=== PATIENT | male | born 1980 | race Two or more races ===

== ENCOUNTER 2018-10-10 16:03 | Emergency (ER) | payer MEDICARE ==
[~2018-10-10] VITALS: Ht 182.9 cm; Wt 90.7 kg
--- NOTE | 2018-10-10 16:20 | NUR ---
BIBA RA 39 from [facility] [place] "Multiple c/o abdominal/chest pain. Increasing Anxiety, pacing a lot. Needs medical evaluation". PT STATES ABDOMINAL PAIN IS LLQ AND 8/10. GOES AWAY WHEN WALKING AROUND. PT IS AOX4, AMB, VSS, RR EVEN AND UNLABORED ON RA. SKIN INTACT, NO ACUTE DISTRESS NOTED. MADE COMFORTABLE IN BED. READY FOR EVAL.
[2018-10-10] MEDS ORDERED: KETOROLAC TROMETHAMINE INJ 30 MG/ML VIAL IV ONE (16:30)
[2018-10-10] MEDS ORDERED: IV NS 0.9% 1,000 ML BAG IV ONE (16:30)
[2018-10-10] MEDS ORDERED: ONDANSETRON HCL/PF 4 MG/2 ML VIAL IVP ONE (16:30)
[2018-10-10] MEDS ORDERED: KETOROLAC TROMETHAMINE INJ 30 MG/ML VIAL ONE (16:32)
[2018-10-10] MEDS ORDERED: ONDANSETRON HCL/PF 4 MG/2 ML VIAL ONE (16:32)
[2018-10-10 16:47] LABS: BASOPHILS # (AUTO) 0.1 /CMM (0.0-0.2); EOSINOPHILS % (AUTO) 9.3 % (0.0-6.0); HEMATOCRIT 43 % (39-51); LYMPHOCYTES # (AUTO) 2.3 /CMM (0.8-4.8); LYMPHOCYTES % (AUTO) 24.2 % (20.0-44.0); MEAN CORPUSCULAR HGB CONC 35 g/dl (31.0-36.0); MEAN CORPUSCULAR VOLUME 89 fL (80-96); MONOCYTES # (AUTO) 1.3 /CMM (0.1-1.30); NEUTROPHILS # (AUTO) 5.1 /CMM (1.8-8.9); NEUTROPHILS % (AUTO) 52.5 % (43.0-81.0); PLATELET COUNT (AUTO) 233 /CMM (150-450); RED BLOOD CELL COUNT(AUTO) 4.83 MIL/uL (4.5-6.0); WHITE BLOOD COUNT (AUTO) 9.6 K/uL (4.3-11.0)
[2018-10-10 17:02] LABS: APPEARANCE,URINE Clear (CLEAR); BILIRUBIN,URINE Negative (NEGATIVE); BLOOD, URINE Negative Ery/uL (NEGATIVE); COLOR,URINE Yellow (YELLOW); KETONES,URINE Negative (NEGATIVE); LEUKOCYTE ESTERASE ,URINE Negative (NEGATIVE); NITRITE, URINE Negative (NEGATIVE); PH,URINE 6.5 (5.0-8.0); PROTEIN,URINE Negative (NEGATIVE); UGLUCOSE Negative (NEGATIVE); UROBILINOGEN,URINE 0.2 EU/dL (0.2)
[2018-10-10 17:04] LABS: CALCIUM, SERUM 8.8 mg/dL (8.5-10.1); CARBON DIOXIDE 25 mmol/L (21-32); CHLORIDE 104 mmol/L (98-107); CREATININE 0.9 mg/dL (0.6-1.3); GLUCOSE 127 mg/dL (74-106); POTASSIUM 3.9 mmol/L (3.5-5.1); SODIUM SERUM 139 mmol/L (136-145); UREA NITROGEN, BLOOD 8 mg/dL (7-18)
[2018-10-10 17:08] LABS: ALANINE AMINOTRANSFERASE 185 U/L (12-78); ALBUMIN 3.8 g/dL (3.4-5.0); ALKALINE PHOSPHATASE 82 U/L (46-116); ASPARTATE AMINOTRANSFERASE 102 U/L (15-37); BILIRUBIN,DIRECT 0.1 mg/dL (0.0-0.2); BILIRUBIN,TOTAL 0.7 mg/dL (0.2-1.0); LIPASE 274 U/L (73-393); TOTAL PROTEIN, SERUM 7.5 g/dL (6.4-8.2)
--- NOTE | 2018-10-10 17:10 | NUR ---
PT TAKEN TO RADIOLOGY VIA TIAN[facility]
--- NOTE | 2018-10-10 18:34 | NUR ---
PER CHARGE NURSE, PT HAS BEEN DISCHARGED FROM [facility] AND IS OK TO BE DISCHARGED TO HOME FROM ER.
--- NOTE | 2018-10-10 18:57 | NUR ---
PT RESTING COMFORTABLY IN BED. NO COMPLAINTS AT THIS TIME. VSS. WILL CONT TO MONITOR.
--- NOTE | 2018-10-10 19:34 | NUR ---
NEW EKG AND TROP REDRAWN. AWAITING RESULTS
--- NOTE | 2018-10-10 20:12 | NUR ---
IV removed. Catheter intact and site benign. Pressure and 4x4 applied to site. No bleeding noted. Patient discharged to home in stable condition. Written and verbal after care instructions given. Patient verbalizes understanding of instruction.
[2018-10-10 20:13] VITALS: BP 142/89
== END 2018-10-10 20:05 | disposition home or self-care (01) ==
LOC: ER 16:08
DX: K59.00 Constipation, unspecified (principal); I73.9 Peripheral vascular disease, unspecified; K76.0 Fatty (change of) liver, not elsewhere classified; E66.9 Obesity, unspecified; F29 Unspecified psychosis not due to a substance or known physiological condition; R07.89 Other chest pain; F12.90 Cannabis use, unspecified, uncomplicated; R74.0 Nonspecific elevation of levels of transaminase and lactic acid dehydrogenase [LDH]; F31.9 Bipolar disorder, unspecified; F41.9 Anxiety disorder, unspecified; R00.0 Tachycardia, unspecified
CPT/HCPCS: 36415; 71045; 74176; 80048; 80076; 81001; 83690; 84484 ×2; 85025; 93005 ×2; 96374; 96375; 99284; J1885; J2405; J7030; 81000-TC

== ENCOUNTER 2018-10-12 02:01 | Emergency (ER) | payer MEDICARE ==
[~2018-10-12] VITALS: Ht 193 cm; Wt 122.0 kg
--- NOTE | 2018-10-12 02:08 | NUR ---
PT AN[employer] FOR SI AT [employer] AND STATED, "I WANT TO RUN INTO TRAFFIC". NO ACUTE DISTRESS. NO EVIDENCE OF DISCOMFORT. [facility] X 2. SAFETY PRECAUTION NOTED. AWAITING FOR MD ORDERS.
[2018-10-12 02:42] LABS: BASOPHILS # (AUTO) 0.1 /CMM (0.0-0.2); BASOPHILS % (AUTO) 0.8 % (0.0-2.0); EOSINOPHILS % (AUTO) 3.3 % (0.0-6.0); HEMATOCRIT 43 % (39-51); HEMOGLOBIN 15.1 g/dL (13.5-17.5); LYMPHOCYTES # (AUTO) 2.1 /CMM (0.8-4.8); LYMPHOCYTES % (AUTO) 20.8 % (20.0-44.0); MEAN CORPUSCULAR HGB CONC 35 g/dl (31.0-36.0); MEAN CORPUSCULAR VOLUME 90 fL (80-96); MONOCYTES # (AUTO) 1.1 /CMM (0.1-1.30); MONOCYTES % (AUTO) 11.3 % (2.0-12.0); NEUTROPHILS # (AUTO) 6.5 /CMM (1.8-8.9); NEUTROPHILS % (AUTO) 63.8 % (43.0-81.0); PLATELET COUNT (AUTO) 226 /CMM (150-450); RED BLOOD CELL COUNT(AUTO) 4.83 MIL/uL (4.5-6.0); WHITE BLOOD COUNT (AUTO) 10.2 K/uL (4.3-11.0)
[2018-10-12 02:57] LABS: CALCIUM, SERUM 9.3 mg/dL (8.5-10.1); CARBON DIOXIDE 25 mmol/L (21-32); CHLORIDE 102 mmol/L (98-107); CREATININE 0.9 mg/dL (0.6-1.3); GLUCOSE 106 mg/dL (74-106); POTASSIUM 3.6 mmol/L (3.5-5.1); SODIUM SERUM 140 mmol/L (136-145); UREA NITROGEN, BLOOD 12 mg/dL (7-18)
--- NOTE | 2018-10-12 03:00 | NUR ---
PT EYES CLOSED, ABLE TO OPEN EYES WT TACTILE STIMULI. WT NO ACUTE DISTRESS. NO SUICIDAL IDEATION NOTED AT THIS TIME. FREQUENT VISUAL CHECKS DONE. WILL CONTINUE TO MONITOR.
[2018-10-12 03:01] LABS: APPEARANCE,URINE Clear (CLEAR); BILIRUBIN,URINE SMALL (NEGATIVE); BLOOD, URINE Negative Ery/uL (NEGATIVE); COLOR,URINE Dark (YELLOW); KETONES,URINE 40 (NEGATIVE); LEUKOCYTE ESTERASE ,URINE Negative (NEGATIVE); NITRITE, URINE Negative (NEGATIVE); PH,URINE 5.5 (5.0-8.0); PROTEIN,URINE 30 mg/dl (NEGATIVE); UGLUCOSE Negative (NEGATIVE); UROBILINOGEN,URINE 0.2 EU/dL (0.2)
[2018-10-12 03:07] LABS: ALANINE AMINOTRANSFERASE 187 U/L (12-78); ALCOHOL, BLOOD < 3 mg/dL (0-0); ALKALINE PHOSPHATASE 74 U/L (46-116); ASPARTATE AMINOTRANSFERASE 99 U/L (15-37); BILIRUBIN,DIRECT 0.3 mg/dL (0.0-0.2); BILIRUBIN,TOTAL 1.3 mg/dL (0.2-1.0); TOTAL PROTEIN, SERUM 7.8 g/dL (6.4-8.2)
[2018-10-12 03:13] LABS: ACETAMINOPHEN 0 ug/ml (10-30)
[2018-10-12] MEDS ORDERED: IV NS 0.9% 1,000 ML BAG IV ONE (03:30)
[2018-10-12 03:35] LABS: BACTERIA,URINE None seen /HPF (None Seen); RBC,URINE 0-2 /HPF (0-2); SQUAMOUS EPITHELIAL CELL,UR Few /HPF (None Seen); WBC,URINE 0-2 /HPF (0-3)
[2018-10-12 03:36] LABS: MUCUS,URINE Moderate /LPF (None Seen)
--- NOTE | 2018-10-12 04:00 | NUR ---
PT. ASLEEP ON GURNEY. NO ACUTE DISTRESS, NO EVIDENCE OF DISCOMFORT. WILL CONTINUE TO MONITOR.
--- NOTE | 2018-10-12 06:50 | NUR ---
PT MORE AWAKE AT THIS TIME, ORIENTED X 2 AND RESTLESS. TRIES TO GET OUT OF BED AND WALK AROUND HALLWAY. ASSISTED BACK TO ROOM AND GURNEY. SAFETY PRECAUTION NOTED AT ALL TIMES. WILL ENDORSE TO DAY SHIFT FOR CONTINUITY OF CARE.
--- NOTE | 2018-10-12 07:30 | NUR ---
PATIENT AWAKE, ALERT AND ORIENTED X 2-3, NO ACUTE DISTRESS. NO PAIN OR DISCOMFORT. WALKING AROUND HALLWAY. ASSISTED BACK TO ROOM.
--- NOTE | 2018-10-12 09:22 | NUR ---
pt ambulatory with steady gait
--- NOTE | 2018-10-12 13:00 | NUR ---
PATIENT RESTING COMFORTABLE INSIDE ROOM. A&O X 3, NO ACUTE DISTRESS. AMBULATING WITH GOOD GAIT. NO C/O PAIN OR DISCOMFORT. LUNCH PROVIDED
--- NOTE | 2018-10-12 14:30 | NUR ---
PATIENT VERIFIED HOMELESS STATUS. RESOURCES PROVIDED. TAP CARD GIVEN PATIENT REQUESTED
[2018-10-12 15:06] VITALS: BP 146/80
--- NOTE | 2018-10-12 15:25 | NUR ---
Patient discharged to home in stable condition. Written and verbal after care instructions given. Patient verbalizes understanding of instruction.
== END 2018-10-12 15:32 | disposition home or self-care (01) ==
LOC: ER 02:03
DX: R41.82 Altered mental status, unspecified (principal); F31.9 Bipolar disorder, unspecified; F17.200 Nicotine dependence, unspecified, uncomplicated; R00.0 Tachycardia, unspecified; Z60.2 Problems related to living alone
CPT/HCPCS: 36415; 80048; 80076; 80305; 80307; 81001; 85025; 96360; 99283; G0480; J7030; 81000-TC

== ENCOUNTER 2019-03-14 20:37 | Emergency (ER) | payer MEDICARE, MEDICAID ==
[~2019-03-14] VITALS: Ht 193 cm; Wt 122.9 kg
--- NOTE | 2019-03-14 20:45 | NUR ---
CATHY, PATIENT WAS RECENTLY RELEASED FROM IN FROM [facility]. PATIENT EXPRESSING SI. PATIENT STATE, "I JUST DONT KNOW HOW TO LIVE. I WANT TO KILL MYSELF." STATES THEY RELEASED HIM ON RIPSERIDONE BUT IT IS JUST NOT HELPING.
[2019-03-14 21:09] LABS: BASOPHILS # (AUTO) 0.1 /CMM (0.0-0.2); BASOPHILS % (AUTO) 0.8 % (0.0-2.0); EOSINOPHILS % (AUTO) 3.5 % (0.0-6.0); HEMATOCRIT 45 % (39-51); HEMOGLOBIN 15.7 g/dL (13.5-17.5); LYMPHOCYTES # (AUTO) 3.1 /CMM (0.8-4.8); LYMPHOCYTES % (AUTO) 33.1 % (20.0-44.0); MEAN CORPUSCULAR HGB CONC 35 g/dl (31.0-36.0); MEAN CORPUSCULAR VOLUME 91 fL (80-96); MONOCYTES # (AUTO) 1.2 /CMM (0.1-1.30); MONOCYTES % (AUTO) 12.3 % (2.0-12.0); NEUTROPHILS # (AUTO) 4.7 /CMM (1.8-8.9); NEUTROPHILS % (AUTO) 50.3 % (43.0-81.0); PLATELET COUNT (AUTO) 182 /CMM (150-450); RED BLOOD CELL COUNT(AUTO) 4.98 MIL/uL (4.5-6.0); WHITE BLOOD COUNT (AUTO) 9.4 K/uL (4.3-11.0)
[2019-03-14 21:14] LABS: APPEARANCE,URINE Clear (CLEAR); BILIRUBIN,URINE Negative (NEGATIVE); BLOOD, URINE Negative Ery/uL (NEGATIVE); COLOR,URINE Yellow (YELLOW); KETONES,URINE Negative (NEGATIVE); LEUKOCYTE ESTERASE ,URINE Negative (NEGATIVE); NITRITE, URINE Negative (NEGATIVE); PROTEIN,URINE Negative (NEGATIVE); UGLUCOSE Negative (NEGATIVE); UROBILINOGEN,URINE 0.2 EU/dL (0.2)
[2019-03-14 21:23] LABS: CALCIUM, SERUM 9.8 mg/dL (8.5-10.1); CARBON DIOXIDE 27 mmol/L (21-32); CHLORIDE 103 mmol/L (98-107); GLUCOSE 90 mg/dL (74-106); SODIUM SERUM 139 mmol/L (136-145); UREA NITROGEN, BLOOD 10 mg/dL (7-18)
[2019-03-14 21:28] LABS: ALANINE AMINOTRANSFERASE 191 U/L (12-78); ALBUMIN 4.1 g/dL (3.4-5.0); ALCOHOL, BLOOD < 3 mg/dL (0-0); ALKALINE PHOSPHATASE 73 U/L (46-116); ASPARTATE AMINOTRANSFERASE 95 U/L (15-37); BILIRUBIN,DIRECT 0.2 mg/dL (0.0-0.2); BILIRUBIN,TOTAL 0.9 mg/dL (0.2-1.0); TOTAL PROTEIN, SERUM 7.7 g/dL (6.4-8.2)
[2019-03-14 21:30] LABS: ACETAMINOPHEN 0 ug/ml (10-30); SALICYLATE 0.6 mg/dL (2.8-20.0)
--- NOTE | 2019-03-14 23:44 | NUR ---
VIRA SANTACRUZ AWARE PT NEED FOR EVAL.
--- NOTE | 2019-03-15 00:49 | NUR ---
VIRA SANTACRUZ AT BEDSIDE FOR EVAL.
--- NOTE | 2019-03-15 02:42 | NUR ---
VERBAL ORDERS PER DR. OLIVAREZ TO GIVE PT ZYPREXA 10 MG IM ONE TIME NOW.
[2019-03-15] MEDS ORDERED: OLANZAPINE 10 MG VIAL IM ONE ×2 (02:43→03:30)
[2019-03-15] MEDS ORDERED: WATER FOR INJECTION,STERILE 10 ML ONE (02:44)
--- NOTE | 2019-03-15 02:53 | NUR ---
PT MEDICATED ORDERED.
--- NOTE | 2019-03-15 04:24 | NUR ---
PT ACCEPTED TO [facility] UNDER DR MARCUS AND DR LOAIZA. [facility]
--- NOTE | 2019-03-15 04:41 | NUR ---
SPOKE TO EDY FROM [facility] FOR BLS TRANSPORT TO [facility] 7AM.
--- NOTE | 2019-03-15 04:55 | NUR ---
drake called and report accepted by [facility] patient being voluntarily admitted to [address]. under dr. hirsch and dr. goff. sampler pickup time still scheduled for 7am.
--- NOTE | 2019-03-15 07:30 | NUR ---
RECEIVED REPORT FROM CALIN LINDSAY FOR [facility], PT IS AAOX4, NOT IN RESPIRATORY DISTRESS, V/S STABLE, KEPT RESTED AND COMFORTABLE, AWAITING AMBULANCE FOR PT TRANSFER TO [place].
--- NOTE | 2019-03-15 07:51 | NUR ---
REPORT GIVEN TO EMT FOR PT TRANSFER TO [place].
[2019-03-15 07:56] VITALS: BP 148/84
== END 2019-03-15 07:57 ==
LOC: ER 20:48
DX: R45.851 Suicidal ideations (principal); R74.0 Nonspecific elevation of levels of transaminase and lactic acid dehydrogenase [LDH]; F12.90 Cannabis use, unspecified, uncomplicated; I10 Essential (primary) hypertension; I45.81 Long QT syndrome; F31.9 Bipolar disorder, unspecified; F17.200 Nicotine dependence, unspecified, uncomplicated; Z60.2 Problems related to living alone; F41.9 Anxiety disorder, unspecified; R45.1 Restlessness and agitation
CPT/HCPCS: 36415; 80048; 80076; 80305; 80307; 80329; 81001; 83735; 84484; 85025; 93005; 96372; 99285; G0480; J3490; 81000-TC